=== PATIENT | male | born 1950 | race Caucasian/White ===

== ENCOUNTER 2019-10-16 16:14 | Outpatient (CLI) | payer MEDICARE, SELFPAY ==
[2019-10-18 06:27] LABS: SARS-CoV-2 RNA PCR Negative
== END 2019-10-16 16:15 | disposition home or self-care (01) ==
PROVIDERS: PCP Internal Medicine; Visit Provider Internal Medicine
DX: Z20.828 Contact with and (suspected) exposure to other viral communicable diseases (principal)
CPT/HCPCS: 87635; C9803; U0003

== ENCOUNTER 2019-11-04 07:40 | Outpatient (CLI) | payer MEDICARE, SELFPAY ==
--- NOTE | ~2019-11-04 | CT_ITS ---
EXAMINATION: CT soft tissue neck wo con EXAM DATE: 11/04/2019 08:05 INDICATION: Bilateral submandibular swelling/lump for weeks. Marked with BB bilaterally. Denies dysph agia. History sided lymphectomy 55 years ago. Face skin cancer. TECHNIQUE: Spiral CT of the neck was performed without contrast. Axial, coronal and sagittal images were reviewed. The dose-length product (DLP) for this examination was 576.83 mGy-cm. The exposure was tailored according to patient size (auto mA exposure control), and iterative reconstruction (ASIR ) was used as additional dose reduction technique. There is no prior study for comparison. FINDINGS: There are externally placed marker is in the submandibular region bilaterally. Deep are the submandibular glands. There is asymmetry in these with the right side being larger than the contrala teral side, but there is no focal density abnormality within either gland. No calcified sialolithiasi s. The subcutaneous fat and parotid glands are more symmetric and unremarkable. The thyroid gland is unremarkable. There is no cervical lymphadenopathy. There are no masses zhao ntified. The superior mediastinum is unremarkable. The airway is unremarkable. Parapharyngeal and pre-glottic fat planes are preserved. Limited evaluation of cervical vessels on this noncontras t study. The orbits are unremarkable. Visualized sinuses and mastoid air cells are well aerated. Lung apices unremarkable. Moderate cervical spondylosis. IMPRESSION: Asymmetric submandibular glands, right side being larger. Could be congenital given that no underlying mass is suspected, duct stone or adjacent inflammation is identified. Reviewed, dictated and finalized at location A. IMPRESSION: Asymmetric submandibular glands, right side being larger. Could be congenital given that no underlying mass is suspected, duct stone or adjacent i nflammation is identified.
== END 2019-11-04 07:41 | disposition home or self-care (01) ==
LOC: CHSIMG 07:41
PROVIDERS: PCP Internal Medicine; Visit Provider Internal Medicine
DX: R59.0 Localized enlarged lymph nodes (principal)
CPT/HCPCS: 70490

== ENCOUNTER 2022-08-13 11:04 | Outpatient (CLI) | payer MEDICARE, SELFPAY ==
[2022-08-13 11:25] LABS: Appearance Urine Clear (Clear); Bilirubin Urine Negative (Negative); Blood Urine Negative (Negative); Color Urine Light Yellow (Yellow); Glucose Urine UA Negative (Negative); Ketones Urine Negative (Negative); Leukocyte Esterase Ur Negative (Negative); Nitrate Urine Negative (Negative); Protein Urine Negative (Negative); Urobilinogen Urine 0.2 mg/dL (0.2-1.0)
[2022-08-13 11:26] LABS: Add Urine Microscopic? NO
[2022-08-13 11:29] LABS: Hemoglobin A1C 5.7 % (<5.7)
[2022-08-13 11:57] LABS: Alanine Aminotransferase 55 U/L (16-63); Albumin Level 4.2 g/dL (3.4-5.0); Alkaline Phosphatase 36 U/L (46-116); Anion Gap 8 mmol/L (8-16); Aspartate Amino Transferase 25 U/L (15-37); Bilirubin,Total 0.3 mg/dL (0.00-1.00); Blood Urea Nitrogen 17 mg/dL (7-18); Calcium 9.6 mg/dL (8.5-10.1); Carbon Dioxide 29 mmol/L (21-32); Chloride 102 mmol/L (98-108); Cholesterol 184 mg/dL (0-200); Creatine Kinase 331 U/L (39-308); Estimated Glomerular Filt Rate > 60; Glucose 88 mg/dL (70-99); HDL Direct 30 mg/dL (40-60); LDL Cholesterol Calculated 114 mg/dL (<130); Osmolality Calculated 288 mOsm/kg (285-295); Potassium 4.4 mmol/L (3.5-5.1); Sodium 139 mmol/L (136-145); Total Protein 7.4 g/dL (6.4-8.2); Triglycerides 198 mg/dL (0-150)
== END 2022-08-13 11:05 | disposition home or self-care (01) ==
LOC: CHSLAB 11:07
PROVIDERS: PCP Internal Medicine; Visit Provider Internal Medicine
DX: E78.2 Mixed hyperlipidemia (principal); I10 Essential (primary) hypertension; E11.9 Type 2 diabetes mellitus without complications
CPT/HCPCS: 36415; 80053; 80061; 81003; 82550; 83036

== ENCOUNTER 2023-03-11 09:53 | Outpatient (CLI) | payer MEDICARE, SELFPAY ==
[2023-03-11 10:10] LABS: Appearance Urine Clear (Clear); Bilirubin Urine Negative (Negative); Blood Urine Negative (Negative); Color Urine Light Yellow (Yellow); Glucose Urine UA Negative (Negative); Ketones Urine Negative (Negative); Leukocyte Esterase Ur Negative (Negative); Nitrate Urine Negative (Negative); Protein Urine Negative (Negative); Urobilinogen Urine 0.2 mg/dL (0.2-1.0)
[2023-03-11 10:11] LABS: Basophils Absolute Auto 0.03 K/mm3 (0.00-0.10); Basophils Percent Auto 0.5 % (0.0-1.0); Eosinophils Absolute Auto 0.28 K/mm3 (0.02-0.50); Eosinophils Percent Auto 4.8 % (1.0-6.0); Hematocrit 44.8 % (37.0-46.0); Hemoglobin 14.7 g/dL (12.4-15.3); Immature Granulocyte Absolute 0.01 K/mm3 (0.00-0.00); Immature Granulocyte Percent A 0.2 % (0.0-0.0); Lymphocytes Absolute Auto 2.07 K/mm3 (1.10-4.50); Lymphocytes Percent Auto 35.5 % (18.0-42.0); Mean Corpuscular HGB Conc 32.8 g/dL (32.0-36.0); Mean Corpuscular Hemoglobin 29.9 pg (27.0-31.0); Mean Corpuscular Volume 91.1 fL (78.0-102.0); Mean Platelet Volume 9.9 fl (8.7-11.0); Monocytes Absolute Auto 0.42 K/mm3 (0.10-0.90); Monocytes Percent Auto 7.2 % (2.0-11.0); Neutrophils Percent Auto 51.8 % (50.0-70.0); Platelet Count Result 141 K/mm3 (150-420); Red Blood Count 4.92 M/mm3 (4.70-6.10); Red Cell Distribution Width 13.3 % (11.6-14.4); White Blood Count 5.8 K/mm3 (4.8-10.8)
[2023-03-11 10:12] LABS: Add Urine Microscopic? NO
[2023-03-11 10:15] LABS: Creatinine Urine 88.78 mg/dL (40-278); MALB Creatinine Ratio 14.6 mg/g (0-30); Microalbumin Urine Random < 13.0 mg/L
[2023-03-11 11:14] LABS: Alanine Aminotransferase 60 U/L (16-63); Albumin Level 4.3 g/dL (3.4-5.0); Alkaline Phosphatase 31 U/L (46-116); Anion Gap 7 mmol/L (8-16); Aspartate Amino Transferase 23 U/L (15-37); Bilirubin,Total 0.6 mg/dL (0.00-1.00); Blood Urea Nitrogen 15 mg/dL (7-18); Calcium 9.4 mg/dL (8.5-10.1); Carbon Dioxide 30 mmol/L (21-32); Chloride 97 mmol/L (98-108); Cholesterol 177 mg/dL (0-200); Creatine Kinase 167 U/L (39-308); Estimated Glomerular Filt Rate > 60; Glucose 124 mg/dL (70-99); HDL Direct 35 mg/dL (40-60); LDL Cholesterol Calculated 105 mg/dL (<130); Osmolality Calculated 279 mOsm/kg (285-295); Potassium 4.4 mmol/L (3.5-5.1); Prostate Specific Antigen 5.8 ng/mL (< OR = 4.0); Sodium 134 mmol/L (136-145); Total Protein 7.6 g/dL (6.4-8.2); Triglycerides 186 mg/dL (0-150)
== END 2023-03-11 09:54 | disposition home or self-care (01) ==
PROVIDERS: PCP Internal Medicine; Visit Provider Internal Medicine
DX: E78.2 Mixed hyperlipidemia (principal); I10 Essential (primary) hypertension; E11.9 Type 2 diabetes mellitus without complications; D69.6 Thrombocytopenia, unspecified; Z12.5 Encounter for screening for malignant neoplasm of prostate
CPT/HCPCS: 36415; 80053; 80061; 81003; 82043; 82550; 83036; 84153; 85025; G0103

== ENCOUNTER 2023-08-05 08:02 | Outpatient (CLI) | payer MEDICARE, SELFPAY ==
[2023-08-05 08:46] LABS: Alanine Aminotransferase 42 U/L (16-63); Aspartate Amino Transferase 21 U/L (15-37)
== END 2023-08-05 08:03 | disposition home or self-care (01) ==
PROVIDERS: PCP Internal Medicine; Visit Provider Internal Medicine
DX: Z51.81 Encounter for therapeutic drug level monitoring (principal)
CPT/HCPCS: 36415; 84450; 84460

== ENCOUNTER 2023-09-09 10:51 | Outpatient (CLI) | payer MEDICARE, SELFPAY ==
[2023-09-09 11:40] LABS: Alanine Aminotransferase 37 U/L (16-63); Aspartate Amino Transferase 20 U/L (15-37)
== END 2023-09-09 10:52 | disposition home or self-care (01) ==
LOC: CHSLAB 10:52
PROVIDERS: PCP Internal Medicine; Visit Provider Internal Medicine
DX: B35.1 Tinea unguium (principal)
CPT/HCPCS: 36415; 84450; 84460

== ENCOUNTER 2023-09-16 09:43 | Outpatient (CLI) | payer MEDICARE, SELFPAY ==
[2023-09-16 11:08] LABS: Hematocrit 41.7 % (37.0-46.0); Hemoglobin 14.2 g/dL (12.4-15.3); Mean Corpuscular HGB Conc 34.1 g/dL (32-36); Mean Corpuscular Hemoglobin 30.5 pg (27.0-31.0); Mean Corpuscular Volume 89.5 fL (78.0-102.0); Mean Platelet Volume 10.2 fl (8.7-11.0); Platelet Count Result 141 K/mm3 (150-420); Red Blood Count 4.66 M/mm3 (4.70-6.10); Red Cell Distribution Width 13.2 % (11.6-14.4); White Blood Count 4.9 K/mm3 (4.8-10.8)
[2023-09-16 11:23] LABS: Hemoglobin A1C 5.8 % (<5.7)
[2023-09-16 11:57] LABS: Alanine Aminotransferase 37 U/L (16-63); Alkaline Phosphatase 33 U/L (46-116); Anion Gap 10 mmol/L (4-12); Aspartate Amino Transferase 18 U/L (15-37); Bilirubin,Total 0.5 mg/dL (0.00-1.00); Blood Urea Nitrogen 15 mg/dL (7-18); Calcium 9.2 mg/dL (8.5-10.1); Carbon Dioxide 28 mmol/L (21-32); Chloride 100 mmol/L (98-108); Cholesterol 185 mg/dL (0-200); Estimated Glomerular Filt Rate > 60; Glucose 102 mg/dL (70-99); HDL Direct 36 mg/dL (40-60); LDL Cholesterol Calculated 116 mg/dL (<130); Osmolality Calculated 286 mOsm/kg (285-295); Potassium 4.3 mmol/L (3.5-5.1); Prostate Specific Antigen 4.1 ng/mL (< OR = 4.0); Sodium 138 mmol/L (136-145); Total Protein 7.5 g/dL (6.4-8.2); Triglycerides 166 mg/dL (0-150)
[2023-09-16 12:09] LABS: Appearance Urine Clear (Clear); Bilirubin Urine Negative (Negative); Blood Urine Negative (Negative); Color Urine Light Yellow (Yellow); Glucose Urine UA Negative (Negative); Ketones Urine Negative (Negative); Leukocyte Esterase Ur Negative LEU/UL (Negative); Nitrate Urine Negative (Negative); Protein Urine Negative (Negative); Specific Grav Ur 1.015 (1.010-1.020); Urobilinogen Urine 0.2 mg/dL (0.2-1.0)
[2023-09-16 12:12] LABS: Add Urine Microscopic? NO
== END 2023-09-16 09:44 | disposition home or self-care (01) ==
LOC: CHSLAB 09:45
PROVIDERS: PCP Internal Medicine; Visit Provider Internal Medicine
DX: E78.2 Mixed hyperlipidemia (principal); E11.9 Type 2 diabetes mellitus without complications; I10 Essential (primary) hypertension; R97.20 Elevated prostate specific antigen [PSA]; N39.0 Urinary tract infection, site not specified
CPT/HCPCS: 36415; 80053; 80061; 81003; 83036; 84153; 85027

== ENCOUNTER 2023-10-05 11:57 | Outpatient (CLI) | payer MEDICARE, SELFPAY ==
--- NOTE | ~2023-10-05 | XR_ITS ---
3 VIEWS LUMBAR SPINE Ordering provider: Antolin Tucker MD History: . acute LBP S/P LIFTING INJURY,RADIATES TO LT FRONT LEG . Comparison: None. FINDINGS: VERTEBRAL BODIES: No visible fracture or subluxation. DISK SPACES: Narrowing of the disc L2-L3, L3-4, L4-L5 and L5-S1. Facet joint disease at the level of L4-L5 and L5-S1. SOFT TISSUES: Aortic calcification. Postoperative changes in the pelvis. IMPRESSION: No acute osseous abnormality lumbar spine. Reviewed, dictated and finalized at location A.
[2023-10-05 12:19] LABS: Hematocrit 46.6 % (37.0-46.0); Hemoglobin 15.8 g/dL (12.4-15.3); Mean Corpuscular HGB Conc 33.9 g/dL (32-36); Mean Corpuscular Hemoglobin 30.4 pg (27.0-31.0); Mean Corpuscular Volume 89.6 fL (78.0-102.0); Mean Platelet Volume 9.9 fl (8.7-11.0); Platelet Count Result 159 K/mm3 (150-420); Red Cell Distribution Width 13.4 % (11.6-14.4); White Blood Count 8.5 K/mm3 (4.8-10.8)
[2023-10-05 13:02] LABS: Rheumatoid Factor Screen Negative (Negative)
[2023-10-05 13:18] LABS: Erythrocyte Sedimentation Rate 5 mm/hr (0-20)
[2023-10-05 13:32] LABS: CRP < 0.1 mg/dL (0.0-0.9)
[2023-10-09 14:59] LABS: Anti Cyclic Citrullinated Pept <16 UNITS
== END 2023-10-05 11:58 | disposition home or self-care (01) ==
LOC: CHSLAB 12:00
PROVIDERS: PCP Internal Medicine; Visit Provider Internal Medicine
DX: M54.50 Low back pain, unspecified (principal); M25.542 Pain in joints of left hand; M25.541 Pain in joints of right hand; M25.532 Pain in left wrist; M25.531 Pain in right wrist
CPT/HCPCS: 36415; 72100; 85027; 85652; 86038; 86039; 86140; 86200; 86430

== ENCOUNTER 2024-01-09 12:54 | Outpatient (RCR) | payer MEDICARE, SELFPAY ==
--- NOTE | 2024-01-09 14:28 | OPREHPOC ---
Outpatient Therapy Plan of Care This is a Multidisciplinary Plan of Care that may contain components documented by all disciplines (PT, OT, and ST.) PT Problem 1 PT Problem #1 Knowledge Deficit PT Goal 1 Goal / Goal Update The patient will be independent in a home exercise program. Target Visit 4 PT Problem 2 PT Problem #2 Pain PT Goal 1 Goal / Goal Update The patient will report no greater than 5/10 low back pain with standing for 10 minutes for grooming activities. Target Visit 10 PT Problem 3 PT Problem #3 Impaired Functional Mobil PT Goal 1 Goal / Goal Update The patient will demonstrate 40% or less self perceived disability per the Back Index questionnaire. The patient will demonstrate the ability to administrative asst an erect position without lateral trunk shift noted. Target Visit 10
--- NOTE | 2024-01-09 14:29 | PTOPEVAL1 ---
Assessment and note entered by Lisa Gale, PT Evaluation Information Assessment Status Evaluation ICD-10 Condition Codes (PT) Pain in low back M54.50 Onset 09/27/23 Subjective Information Johnson Burt reports intermittent pain in the lower back over the last 40 years. The most recent incident started on 09/27/23 when he bent over awkwardly and he has not been able to stand straight since then or lay down. He is only able to get comfortable in his recliner. He had a MRI that showed degenerative disc disease, neural foraminal stenosis at L4-5, and multiple bulging discs. He has been going to pain management and injections and nerve blocks have helped mildly however, he still has difficulty standing up. He has had to start using a walker and occasionally a cane to get around. He has been to the neurosurgeon and was told he will not be able to have surgery until his 3rd round of injections and PT. He has pain in the lower back and down the left leg along the side and then down to the mid calf. He also has numbness in the right upper leg along the outside edge. He is limited to walking or standing no more than 3-4 minutes without an AD and 10 minutes with his walker. He lives with his who does most of the cooking and cleaning. He has to take sitting rest breaks while showering and grooming. Reported Pain Level Pain Score 3: Self Report Assessment PT Clinical Summary Johnson Burt presents with lower back pain with radiation into L > R LE. He has had a MRI that showed degenerative disc diseased, foraminal stenosis at L4-5, and multiple bulging discs. He has difficulty with standing erect, walking, showering, and grooming. He is unable to help with cooking and cleaning. He objectively demonstrates forward flexed and right lateral shift posture, tenderness at the left sciatic notch and bilateral greater trochanters, difficulty tolerating supine , prone, or standing positions, and increased pain with slump tests bilaterally. He will benefit from skilled PT to address these limitations. Plan of Care Interventions Electrical Stimulation,Hot Pack/Cold Pack,Manual Therapy,Mechanical Traction,Neuro Re-education, Patient/Caregiver Educati,Therapeutic Activities, Therapeutic Exercise PT Services Indicated Yes Treatment Frequency and 3 times a week for 10 visits Duration These treatments will address the objective and functional deficits as defined above. The patient will be advanced safely and appropriately in order for the patient to progress towards his/her prior level of function. Additional exercises will be introduced and as well as a comprehensive home exercise program upon discharge, if needed, ?to ensure carryover of functional gains achieved in the clinic. This treatment plan has been reviewed and agreement upon by the patient.
--- NOTE | 2024-01-09 14:34 | PTOPEVAL1 ---
Assessment and note entered by Lisa Gale, PT Evaluation Information Assessment Status Evaluation ICD-10 Condition Codes (PT) Pain in low back M54.50,M54.16 Onset 09/27/23 Subjective Information Johnson Burt reports intermittent pain in the lower back over the last 40 years. The most recent incident started on 09/27/23 when he bent over awkwardly and he has not been able to stand straight since then or lay down. He is only able to get comfortable in his recliner. He had a MRI that showed degenerative disc disease, neural foraminal stenosis at L4-5, and multiple bulging discs. He has been going to pain management and injections and nerve blocks have helped mildly however, he still has difficulty standing up. He has had to start using a walker and occasionally a cane to get around. He has been to the neurosurgeon and was told he will not be able to have surgery until his 3rd round of injections and PT. He has pain in the lower back and down the left leg along the side and then down to the mid calf. He also has numbness in the right upper leg along the outside edge. He is limited to walking or standing no more than 3-4 minutes without an AD and 10 minutes with his walker. He lives with his who does most of the cooking and cleaning. He has to take sitting rest breaks while showering and grooming. Reported Pain Level Pain Score 3: Self Report Assessment PT Clinical Summary Johnson Burt presents with lower back pain with radiation into L > R LE. He has had a MRI that showed degenerative disc diseased, foraminal stenosis at L4-5, and multiple bulging discs. He has difficulty with standing erect, walking, showering, and grooming. He is unable to help with cooking and cleaning. He objectively demonstrates forward flexed and right lateral shift posture, tenderness at the left sciatic notch and bilateral greater trochanters, difficulty tolerating supine , prone, or standing positions, and increased pain with slump tests bilaterally. He will benefit from skilled PT to address these limitations. Plan of Care Interventions Electrical Stimulation,Hot Pack/Cold Pack,Manual Therapy,Mechanical Traction,Neuro Re-education, Patient/Caregiver Educati,Therapeutic Activities, Therapeutic Exercise PT Services Indicated Yes Treatment Frequency and 2 times a week for 12 visits Duration These treatments will address the objective and functional deficits as defined above. The patient will be advanced safely and appropriately in order for the patient to progress towards his/her prior level of function. Additional exercises will be introduced and as well as a comprehensive home exercise program upon discharge, if needed, ?to ensure carryover of functional gains achieved in the clinic. This treatment plan has been reviewed and agreement upon by the patient.
--- NOTE | 2024-02-08 16:32 | OPREHPOC ---
Outpatient Therapy Plan of Care This is a Multidisciplinary Plan of Care that may contain components documented by all disciplines (PT, OT, and ST.) PT Problem 1 PT Problem #1 Knowledge Deficit PT Goal 1 Goal / Goal Update The patient will be independent in a home exercise program. Target Visit 4 Progress Met PT Problem 2 PT Problem #2 Pain PT Goal 1 Goal / Goal Update The patient will report no greater than 5/10 low back pain with standing for 10 minutes for grooming activities. Target Visit 12 Progress Not Met PT Goal 2 Goal / Goal Update continue PT Problem 3 PT Problem #3 Impaired Functional Mobility PT Goal 1 Goal / Goal Update The patient will demonstrate 40% or less self perceived disability per the Back Index questionnaire. -not met The patient will demonstrate the ability to hand woodworking sander an erect position without lateral trunk shift noted. -not met Target Visit 12 PT Goal 2 Goal / Goal Update continue
--- NOTE | 2024-02-08 16:32 | PTOPPROG ---
Assessment and note entered by Lisa Gale, PT Evaluation Information Assessment Status Progress ICD-10 Condition Codes (PT) Pain in low back M54.50,Radiculopathy, lumbar region M54.16 Onset 09/27/23 Subjective Information Johnson Burt reports his back is still painful and he recently started taking a muscle relaxer which has helped. He was reporting slowly decreasing pain levels but he was and still can not stand up straight. He had a flare up in symptoms on 02/06/24 when he twisted in the shower and had immediate pain. Pain is located on the mid lower back and left LE. He is still having difficulty with car transfers, bed mobility, and standing more than 10 minutes. He will see pain management again on 02/15/24. Assessment PT Clinical Summary Johnson Burt has completed 10 skilled PT visits for low back pain with radiation to the L > R LE. He is reporting he had an incident on 02/06/24 when he twisted wrong in the shower causing an increase in pain which has now prompted his doctor to prescribe a muscle relaxer. Prior to this incident, he was having a little less pain but he was still unable to stand up straight, sleep in his bed, or stand for more than 10 minutes. He objectively demonstrates decreased lumbar AROM with inability to move to neutral extension or neutral left lateral flexion. He is standing in a forward flexed and right lateral trunk lean position. He continues to have decreased ROM and impaired gait as well. He will continue skilled PT x 2 more visits per original POC. Plan of Care Interventions Electrical Stimulation,Hot Pack/Cold Pack,Manual Therapy,Patient/Caregiver Education,Therapeutic Exercise PT Services Indicated Yes Treatment Frequency and continue POC x 2 additional visits Duration These treatments will address the objective and functional deficits as defined above. The patient will be advanced safely and appropriately in order for the patient to progress towards his/her prior level of function. Additional exercises will be introduced and as well as a comprehensive home exercise program upon discharge, if needed, ?to ensure carryover of functional gains achieved in the clinic. This treatment plan has been reviewed and agreement upon by the patient.
--- NOTE | 2024-02-16 13:50 | OPREHPOC ---
Outpatient Therapy Plan of Care This is a Multidisciplinary Plan of Care that may contain components documented by all disciplines (PT, OT, and ST.) PT Problem 1 PT Problem #1 Knowledge Deficit PT Goal 1 Goal / Goal Update The patient will be independent in a home exercise program. Target Visit 4 Progress Met PT Problem 2 PT Problem #2 Pain PT Goal 1 Goal / Goal Update The patient will report no greater than 5/10 low back pain with standing for 10 minutes for grooming activities. Target Visit 12 Progress Not Met PT Goal 2 Goal / Goal Update continue PT Problem 3 PT Problem #3 Impaired Functional Mobility PT Goal 1 Goal / Goal Update The patient will demonstrate 40% or less self perceived disability per the Back Index questionnaire. -not met The patient will demonstrate the ability to box spring maker an erect position without lateral trunk shift noted. -not met Target Visit 12 Progress Not Met PT Goal 2 Goal / Goal Update continue
--- NOTE | 2024-02-16 13:50 | PTOPDC ---
Assessment and note entered by JT File, PT Evaluation Information Assessment Status Discharge ICD-10 Condition Codes (PT) Pain in low back M54.50,Radiculopathy, lumbar region M54.16 Onset 09/27/23 Subjective Information patient reports he feels Alright today. he reports he had injections to his back earlier this week. he reports he was told at the injection appointment they would only be temporary. he reports today is his last therapy day. patient reports overall he feels his rom is improved, and his pain that comes on is less than it was at the beginning of therapy. he reports he does not tolerate laying on his back or R side, and standing or walking for more than few minutes increases his pain. Reported Pain Level Pain Score 2: Self Report Assessment PT Clinical Summary mrs. johnson presents to skilled PT for his 12th skilled therapy visit today. he has recently had injections to the back which helped for a few hours, but his pain is still present. he has met HEP goal, but no other goals as of this date. he continues to display poor posture and pain with standing and walking more than a few minutes. he will DC skilled PT today, and return to MD/ specialist for follow up and education on next steps for his lower back issues. Plan of Care PT Services Indicated Yes
== END 2024-02-16 13:45 | disposition home or self-care (01) ==
LOC: CHSPT 12:54
DX: M54.50 Low back pain, unspecified (principal); M79.662 Pain in left lower leg; M79.661 Pain in right lower leg
CPT/HCPCS: 97014; 97110; 97140; 97161; G0283

== ENCOUNTER 2024-03-21 09:52 | Outpatient (CLI) | payer MEDICARE, SELFPAY ==
[2024-03-21 10:17] LABS: Hematocrit 44.7 % (37.0-46.0); Hemoglobin 14.5 g/dL (12.4-15.3); Mean Corpuscular HGB Conc 32.4 g/dL (32-36); Mean Corpuscular Hemoglobin 30.1 pg (27.0-31.0); Mean Corpuscular Volume 92.9 fL (78.0-102.0); Mean Platelet Volume 10.1 fl (8.7-11.0); Platelet Count Result 148 K/mm3 (150-420); Red Blood Count 4.81 M/mm3 (4.70-6.10); Red Cell Distribution Width 12.9 % (11.6-14.4)
[2024-03-21 10:18] LABS: Add Urine Microscopic? NO; Appearance Urine Clear (Clear); Bilirubin Urine Negative (Negative); Blood Urine Negative (Negative); Color Urine Yellow (Yellow); Glucose Urine UA Negative (Negative); Ketones Urine Negative (Negative); Leukocyte Esterase Ur Negative LEU/UL (Negative); Nitrate Urine Negative (Negative); Protein Urine Negative (Negative); Specific Grav Ur 1.025 (1.010-1.020); Urobilinogen Urine 0.2 mg/dL (0.2-1.0); pH Urine 5.5 (5.0-8.0)
--- OUTSIDE RECORDS SUMMARY | 2024-03-21 10:29 | XMS_ITS | Clinical Summary ---
Author Organization [facility] Address [address] [place] [address]. [place], [place] [address] [place] [id number] Care Team Providers Care Health Data Analyst Name Role Phone Unavailable Primary Care Provider Unavailabl e Social History Tobacco Use Types Packs/Day Years Used Date Smoking Tobacco: Never Assessed Sex and Gender Information Value Date Recorded Sex Assigned at Not on file Legal Sex Male 12:34 PM CDT Gender Identity Not on file Sexual Orientation Not on file Plan of Treatment Health Maintenance Due Date Last Done Comments Colorectal Cancer Screening Colonoscopy (10 Years) 1950 Hepatitis C 1968 DTaP, Tdap and Td Vaccines ( 1 - Tdap) 1969 Zoster Vaccines (1 of 2) 2000 Annual Medicare Wellness Visit 09/22/2015 Pneumococcal Vaccine: 65+ Ye ars (1 of 1 - PCV) 09/22/2015 COVID-19 Vaccine (2023-2 5 season) 2023 Influenza Adult (#1) 2023 RSV Immunization or 60+ Years (1 - 1-dose 75+ series) 2025 Meningococcal B Vaccine Aged Out No l onger eligible based on patient's age to complete this topic Meningococcal Vaccine Aged Out No ricco naheed eligible based on patient's age to complete this topic RSV Immunizations Under 20 Months Aged Out No longer eligible based on patient's age to complete this topic Insurance [facility] MED[facility]
[2024-03-21 10:37] LABS: Hemoglobin A1C 5.8 % (<5.7)
[2024-03-21 12:00] LABS: Alanine Aminotransferase 65 U/L (16-63); Albumin Level 4.5 g/dL (3.4-5.0); Alkaline Phosphatase 38 U/L (46-116); Anion Gap 7 mmol/L (4-12); Aspartate Amino Transferase 32 U/L (15-37); Bilirubin,Total 0.4 mg/dL (0.00-1.00); Blood Urea Nitrogen 30 mg/dL (7-18); Calcium 9.2 mg/dL (8.5-10.1); Carbon Dioxide 31 mmol/L (21-32); Chloride 101 mmol/L (98-108); Cholesterol 233 mg/dL (0-200); Creatine Kinase 127 U/L (39-308); Estimated Glomerular Filt Rate > 60; Glucose 91 mg/dL (70-99); HDL Direct 38 mg/dL (40-60); LDL Cholesterol Calculated 146 mg/dL (<130); Osmolality Calculated 294 mOsm/kg (285-295); Prostate Specific Antigen 5.2 ng/mL (< OR = 4.0); Sodium 139 mmol/L (136-145); Total Protein 7.1 g/dL (6.4-8.2); Triglycerides 244 mg/dL (0-150)
== END 2024-03-21 09:53 | disposition home or self-care (01) ==
PROVIDERS: PCP Internal Medicine; Visit Provider Internal Medicine
DX: E78.2 Mixed hyperlipidemia (principal); I10 Essential (primary) hypertension; E11.9 Type 2 diabetes mellitus without complications; R97.20 Elevated prostate specific antigen [PSA]
CPT/HCPCS: 36415; 80053; 80061; 81003; 82550; 83036; 84153; 85027

== ENCOUNTER 2024-10-19 08:22 | Outpatient (CLI) | payer MEDICARE, SELFPAY ==
[2024-10-19 09:15] LABS: Hematocrit 43.3 % (37.0-46.0); Hemoglobin 14.1 g/dL (12.4-15.3); Immature Granulocyte Percent A 0.5 % (0.0-0.0); Immature Platelet Fraction Pct 3.1 % (1.0-7.0); Lymphocytes Absolute Auto 2.16 K/mm3 (1.10-4.50); Mean Corpuscular HGB Conc 32.6 g/dL (32-36); Mean Corpuscular Hemoglobin 29.7 pg (27.0-31.0); Mean Corpuscular Volume 91.4 fL (78.0-102.0); Nucleated Red Blood Cells Absolute Auto 0.00 K/mm3 (0.00-0.00); Nucleated Red Blood Cells Perc 0.0 % (0-0.0); Platelet Count Result 134 K/mm3 (150-420); Red Blood Count 4.74 M/mm3 (4.70-6.10); White Blood Count 6.0 K/mm3 (4.8-10.8)
[2024-10-19 09:38] LABS: Add Urine Microscopic? NO; Appearance Urine Clear (Clear); Glucose Urine UA Negative (Negative); Leukocyte Esterase Ur Negative LEU/UL (Negative); Nitrate Urine Negative (Negative); Specific Grav Ur 1.020 (1.010-1.020)
[2024-10-19 09:59] LABS: Alanine Aminotransferase 49 U/L (6-50); Albumin Level 4.8 g/dL (3.5-5.1); Alkaline Phosphatase 40 U/L (38-126); Anion Gap 12 mmol/L (4-12); Aspartate Amino Transferase 36 U/L (17-59); Bilirubin,Total 0.5 mg/dL (0.2-1.3); Blood Urea Nitrogen 19 mg/dL (9-20); Calcium 9.8 mg/dL (8.4-10.2); Carbon Dioxide 26 mmol/L (22-30); Chloride 101 mmol/L (98-107); Cholesterol 194 mg/dL (0-200); Creatine Kinase 111 U/L (55-170); Estimated Glomerular Filt Rate > 60; Glucose 88 mg/dL (65-110); HDL Direct 33 mg/dL; Osmolality Calculated 289 mOsm/kg (285-295); Potassium 4.8 mmol/L (3.4-5.0); Sodium 139 mmol/L (137-145); Total Protein 7.4 g/dL (6.3-8.2); Triglycerides 252 mg/dL (<150)
[2024-10-19 10:05] LABS: Hemoglobin A1C 5.9 % (<5.7)
[2024-10-19 10:27] LABS: Prostate Specific Antigen 3.1 ng/mL (< OR = 4.0)
== END 2024-10-19 08:23 | disposition home or self-care (01) ==
LOC: CHSLAB 08:23
PROVIDERS: PCP Internal Medicine; Visit Provider Internal Medicine
DX: E78.2 Mixed hyperlipidemia (principal); I10 Essential (primary) hypertension; R97.20 Elevated prostate specific antigen [PSA]; N39.0 Urinary tract infection, site not specified; R74.8 Abnormal levels of other serum enzymes; E11.9 Type 2 diabetes mellitus without complications
CPT/HCPCS: 36415; 80053; 80061; 81003; 82550; 83036; 84153; 85025; 85055